=== PATIENT | female | born 2000 | race Caucasian/White ===

== ENCOUNTER 2021-04-28 16:58 | Emergency (ER) | payer MEDICAID, SELFPAY ==
[~2021-04-28 16:58] MED LIST: Iopamidol-370 76% 500 ML 1 ML ONE
[2021-04-28] MEDS ORDERED: Morphine 4 MG/ML VIAL ONE (17:18)
[2021-04-28] MEDS ORDERED: Ondansetron PF 4 MG/2 ML Vial ONE ×3 (17:18→20:08)
[2021-04-28 17:35] LABS: #Basophils 0.1 thou/uL (0.0-0.2); #Eosinphils 0.1 thou/uL (0.0-0.7); #Lymphocytes 0.5 thou/uL (1.20-3.40); #Monocytes 0.7 thou/uL (0.11-0.59); #Neutrophils 12.2 thou/uL (1.40-6.50); %Basophils 0.4 % (0.0-1.0); %Eosinophils 0.4 % (0.0-10.0); %Lymphocytes 3.9 % (28.0-48.0); %Monocytes 5.4 % (0.0-4.0); %Neutrophils 89.9 % (31.0-61.0); Mean Corpuscular HGB CONC 35.1 g/dL (32.0-36.0); Mean Corpuscular Hemoglobin 31.8 pg (25.0-35.0); Mean Corpuscular Volume 90.6 fL (78.0-98.0); Mean Platelet Volume 7.7 fL (7.4-10.4); Platelet Count 245 thou/uL (130-400); RBC Distribution Width 11.9 % (11.5-14.5); Red Blood Cell (RBC) Count 5.02 mill/uL (4.00-5.20); White Blood Cell (WBC) Count 13.6 thou/uL (4.8-10.8)
[2021-04-28 17:45] LABS: BHCG - Serum Negative (NEGATIVE); Pregs Control Background? CLEAR/WHITE (CLR/WHITE); Pregs Control Bar Appear? YES (CONTROL BAR)
[2021-04-28 18:04] LABS: ALT (SGPT) 16 U/L (8-55); AST (SGOT) 21 U/L (5-30); Albumin 4.7 g/dL (3.5-5.0); Alkaline Phosphatase 82 U/L (40-100); Anion Gap 17 mmol/L (10-20); BUN (Urea Nitrogen) 11 mg/dL (8.4-21.0); Bilirubin, Total 0.9 mg/dL (0.2-1.2); Calc. Creatinine Clearance 0 mL/min (70-130); Calcium 10.2 mg/dL (7.8-10.44); Carbon Dioxide 21 mmol/L (22-29); Chloride 101 mmol/L (98-107); Globulin 3.7 g/dL (2.4-3.5); Glucose 105 mg/dL (70-105); Lipase 12 U/L (8-78); Potassium 4.3 mmol/L (3.5-5.1); Protein, Total 8.4 g/dL (6.0-8.3); Sodium 135 mmol/L (136-145)
[2021-04-28] MEDS ORDERED: Promethazine HCl 25 MG/ML VIAL ONE (18:40)
[2021-04-28 21:17] LABS: Bacteria/HPF 3+ HPF (None Seen); Bilirubin Negative (Negative); Blood, Urine Negative (Negative); Clarity Clear (Clear); Glucose, Urine (Dipstick) Normal (Negative); Ketone, Urine 10 mg/dL (Negative); Leukocyte 25 Leu/uL (Negative); Nitrite Negative (Negative); Protein, Urine (Dipstick) Negative (Neg-Trace); RBC/HPF 0-3 HPF (0-3); Squamous Epithelial 21-50 HPF (0-3); Urobilinogen Normal mg/dL (Less than 2); WBC/HPF 0-3 HPF (0-3)
[2021-04-28 21:18] LABS: Specific Gravity, Urine 1.052 (1.002-1.036)
[2021-04-28] MEDS ORDERED: Haloperidol Lactate 5 MG/ML VIAL ONE (21:42)
== END 2021-04-28 23:25 | disposition home or self-care (01) ==
LOC: ERS 16:58
DX: I88.0 Nonspecific mesenteric lymphadenitis (principal); N83.202 Unspecified ovarian cyst, left side; E86.0 Dehydration; E87.2 Acidosis; R11.2 Nausea with vomiting, unspecified; D72.829 Elevated white blood cell count, unspecified; F17.290 Nicotine dependence, other tobacco product, uncomplicated
CPT/HCPCS: 74177; 76856; 80053; 81003; 81015; 83605; 83690; 84703; 85025; 87040; 96365; 96375; 96376; J1630; J2270; J2405; J2550; Q9967